=== PATIENT | male | born 1965 | race Two or more races ===

== ENCOUNTER 2022-05-22 11:34 | Inpatient (IN) | payer OTHER ==
[~2022-05-22] VITALS: Ht 177.8 cm; Wt 87.1 kg
[~2022-05-22 11:34] MED LIST: CANDESARTAN CILE8 MG PO; COZAAR50 MG PO; CRESTOR5 MG PO; FARXIGA10 MG PO; INSULIN SYRING1 EA29 SUBCUTANEO; LASIX40 MG PO; NORVASC5 MG PO; SODIUM BICARBO650 MG PO; TOPROL XL50 M1 PO
== END 2022-05-31 14:26 | disposition designated cancer center or children's hospital (05) | DRG 281 ==
LOC: ER 11:34 → MEDJ 19:45 → MEDI 19:45
PROVIDERS: ADMIT Internal Medicine; ATTEND Internal Medicine
PROC: B246ZZZ Ultrasonography of Right and Left Heart (ICD-10-PCS; principal; 2022-05-22)
PROC: BB24ZZZ Computerized Tomography (CT Scan) of Bilateral Lungs (ICD-10-PCS; 2022-05-22)
PROC: 4A12X4Z Monitoring of Cardiac Electrical Activity, External Approach (ICD-10-PCS; 2022-05-23)
DX: I21.A1 Myocardial infarction type 2 (principal); I13.0 Hypertensive heart and chronic kidney disease with heart failure and stage 1 through stage 4 chronic kidney disease, or unspecified chronic kidney disease; I50.9 Heart failure, unspecified; E11.22 Type 2 diabetes mellitus with diabetic chronic kidney disease; N18.9 Chronic kidney disease, unspecified; Z79.4 Long term (current) use of insulin; Z20.822 Contact with and (suspected) exposure to COVID-19

== ENCOUNTER 2024-06-02 05:45 | Day surgery (SDC) | payer OTHER ==
[2024-06-02] MEDS ORDERED: MIDAZOLAM HCL 2 MG/2 ML VIAL IV ONE (08:30)
[2024-06-02] MEDS ORDERED: DIPHENHYDRAMINE HCL 50 MG/ML VIAL 1ML IV ONE (08:30)
[2024-06-02] MEDS ORDERED: fentaNYL CITRATE 50 MCG/ML AMPUL IV PUSH ONE (08:30)
[2024-06-02] MEDS ORDERED: ONDANSETRON HCL 2 MG/ML VIAL IV ONE (08:30)
== END 2024-06-02 10:05 | disposition home or self-care (01) ==
LOC: AMB-ENDOS 05:45
PROVIDERS: ATTEND Colon & Rectal Surgery
DX: D12.0 Benign neoplasm of cecum (principal); D12.4 Benign neoplasm of descending colon; K63.5 Polyp of colon

== ENCOUNTER 2024-10-13 12:30 | Inpatient (IN) | payer OTHER ==
[~2024-10-13] VITALS: Ht 177.8 cm; Wt 81.6 kg
[2024-10-13] MEDS ORDERED: ADULT LOW DOSE81 M1 (14:01)
[2024-10-13] MEDS ORDERED: LIPITOR40 M1 PO (14:01)
[2024-10-13 14:08] VITALS: BP 164/72
[2024-10-18 12:55] LABS: RH NEGATIVE
[2024-10-20] MEDS ORDERED: CEFTRIAXONE SODIUM 2,000 MG VIAL ONE (06:36)
[2024-10-20] MEDS ORDERED: METRONIDAZOLE/SODIUM CHLORIDE 500 MG/100 ML PIGGYBACK IV ONE ×2 (06:36→15:30)
[2024-10-20] MEDS ORDERED: LIDOCAINE HCL 1%/EPINEPHRINE 20ML VIAL IJ ONE ×2 (07:07→15:15)
[2024-10-20] MEDS ORDERED: BUPIVACAINE HCL/MPF 0.5% 30ML VIAL ONE (07:07)
[2024-10-20 09:16] LABS: ALBUMIN 3.8 gm/dL (3.4-5.0); BILIRUBIN TOTAL 0.58 mg/dL (0.3-1.2); CALCIUM 8.5 mg/dL (8.5-10.1); GFR 8.43; GLOBULINA 4.1 G/DL (2.4-3.5); POTASSIUM 4.56 mEq/L (3.5-5.1); TOTAL PROTEIN 7.9 gm/dL (6.4-8.2)
[2024-10-20 09:24] LABS: CREATININE SERUM 6.74 mg/dL (0.70-1.30)
[2024-10-20] MEDS ORDERED: CEFTRIAXONE SODIUM 2,000 MG VIAL IV ONE (15:15)
[2024-10-20] MEDS ORDERED: BUPIVACAINE HCL 30 ML VIAL IJ ONE (15:15)
[2024-10-20] MEDS ORDERED: MORPHINE SULFATE 4 MG/ML CARTRIDGE IV PRN (16:30)
[2024-10-20] MEDS ORDERED: ONDANSETRON HCL 2 MG/ML VIAL IV PRN (16:30)
[2024-10-20] MEDS ORDERED: RINGERS SOLUTION,LACTATED 1,000 ML IV SCH (16:30)
[2024-10-20] MEDS ORDERED: DEXTROSE 50 % IN WATER 0.5 G/ML VIAL IV PRN (16:30)
[2024-10-20] MEDS ORDERED: OxyCODONE HCL 5 MG TABLET (ROXICODONE) PO PRN (16:45)
[2024-10-20] MEDS ORDERED: POLYETHYLENE GLYCOL 3350 17 GM BLIST.PACK PO SCH (17:00)
[2024-10-20] MEDS ORDERED: GABAPENTIN 300 MG CAPSULE PO SCH (17:00)
[2024-10-20] MEDS ORDERED: SIMETHICONE 125 MG CAPSULE PO SCH (17:00)
[2024-10-20] MEDS ORDERED: MORPHINE SULFATE 4 MG/ML VIAL IV ONE ×2 (17:25→17:55)
[2024-10-20 17:37] LABS: HEMATOCRIT 33.7 % (39.0-48.0); HEMOGLOBIN 11.4 g/dL (13-16.00); MEAN CELL VOLUME 94.8 fL (80.0-100.00); MEAN CORPUSCULAR HEMOGLOBIN 32.3 pg (27.00-32.0); PLATELET COUNT 164 K/uL (150-450); RED BLOOD COUNT 3.55 M/uL (4.00-6.00); RED CELL DISTRIBUTION WIDTH 14.9 % (11.5-14.5)
[2024-10-20 17:55] LABS: ALBUMIN 3.8 gm/dL (3.4-5.0); CALCIUM 8.3 mg/dL (8.5-10.1); MAGNESIUM 2.1 mg/dL (1.8-2.4); POTASSIUM 5.16 mEq/L (3.5-5.1)
[2024-10-20] MEDS ORDERED: ACETAMINOPHEN 500 MG GEL..CAP PO SCH (18:00)
[2024-10-20 18:03] LABS: GFR 7.72; PHOSPHOROUS 5.2 mg/dL (2.5-4.9)
[2024-10-20 18:25] LABS: CREATININE SERUM 7.27 mg/dL (0.70-1.30)
[2024-10-20 19:51] VITALS: BP 157/68; O2SAT 95
[2024-10-20] MEDS ORDERED: hydrALAZINE HCL 20 MG VIAL IV PRN (21:00)
[2024-10-20] MEDS ORDERED: FAMOTIDINE/PF 20 MG/2 ML VIAL IV PUSH SCH (21:00)
[2024-10-21 01:15] VITALS: BP 1501/70; O2SAT 96
[2024-10-21 06:48] LABS: HEMOGLOBIN 12.1 g/dL (13-16.00); MEAN CELL VOLUME 94.4 fL (80.0-100.00); MEAN CORPUSCULAR HEMOGLOBIN 32.7 pg (27.00-32.0); MEAN CORPUSCULAR HGB CONC 34.6 g/dl (32.0-36.0); PLATELET COUNT 157 K/uL (150-450); RED BLOOD COUNT 3.71 M/uL (4.00-6.00); RED CELL DISTRIBUTION WIDTH 14.8 % (11.5-14.5)
[2024-10-21 07:20] LABS: ALBUMIN 3.5 gm/dL (3.4-5.0); GFR 7.27; PHOSPHOROUS 5.2 mg/dL (2.5-4.9); POTASSIUM 5.9 mEq/L (3.5-5.1)
[2024-10-21 07:58] LABS: CREATININE SERUM 7.66 mg/dL (0.70-1.30)
[2024-10-21 08:00] VITALS: BP 170/78; O2SAT 98
[2024-10-21] MEDS ORDERED: METOPROLOL SUCCINATE 50 MG TAB.SR.24H PO SCH (09:00)
[2024-10-21] MEDS ORDERED: LACTOBACILLUS ACIDOPHILUS 1 CAP CAP PO SCH (09:00)
[2024-10-21] MEDS ORDERED: ATORVASTATIN CALCIUM 40 MG TABLET PO SCH (09:00)
[2024-10-21] MEDS ORDERED: AMLODIPINE BESYLATE 5 MG TABLET PO SCH (09:00)
[2024-10-21] MEDS ORDERED: MAGNESIUM CHLORIDE 70 MG TABLET.DR PO SCH (09:00)
[2024-10-21] MEDS ORDERED: LOSARTAN POTASSIUM 50 MG TABLET PO SCH (09:00)
[2024-10-21] MEDS ORDERED: ENOXAPARIN SODIUM 40 MG/0.4 ML SYRINGE SUBCUTANEO SCH (17:00)
[2024-10-21] MEDS ORDERED: HEPARIN SODIUM,PORCINE 5,000 UNITS/ML VIAL IJ ONE (18:15)
[2024-10-22 03:04] VITALS: BP 148/74; O2SAT 98
[2024-10-22] MEDS ORDERED: ENOXAPARIN SODIUM 30 MG/0.3 ML SYRINGE SUBCUTANEO SCH (09:00)
[2024-10-22 09:04] LABS: HEMOGLOBIN 11.8 g/dL (13-16.00); MEAN CELL VOLUME 96.6 fL (80.0-100.00); MEAN CORPUSCULAR HEMOGLOBIN 32.6 pg (27.00-32.0); MEAN CORPUSCULAR HGB CONC 33.8 g/dl (32.0-36.0); PLATELET COUNT 179 K/uL (150-450); RED BLOOD COUNT 3.63 M/uL (4.00-6.00); RED CELL DISTRIBUTION WIDTH 14.7 % (11.5-14.5)
[2024-10-22 09:16] VITALS: BP 131/70; O2SAT 97
[2024-10-22 10:02] LABS: ALBUMIN 3.5 gm/dL (3.4-5.0); CALCIUM 8.7 mg/dL (8.5-10.1); GFR 9.06; MAGNESIUM 2.1 mg/dL (1.8-2.4); PHOSPHOROUS 4.7 mg/dL (2.5-4.9); POTASSIUM 4.63 mEq/L (3.5-5.1)
[2024-10-22 10:17] LABS: CREATININE SERUM 6.33 mg/dL (0.70-1.30)
== END 2024-10-22 14:53 | disposition home or self-care (01) | DRG 331 ==
LOC: O/R 10-20 05:16 → SURH 10-20 07:00 → MEDJ 10-21 15:27
PROVIDERS: ADMIT Colon & Rectal Surgery; ATTEND Colon & Rectal Surgery
PROC: 0DBB4ZZ Excision of Ileum, Percutaneous Endoscopic Approach (ICD-10-PCS; 2024-10-20)
PROC: 07BB4ZZ Excision of Mesenteric Lymphatic, Percutaneous Endoscopic Approach (ICD-10-PCS; 2024-10-20)
PROC: 0DTK4ZZ Resection of Ascending Colon, Percutaneous Endoscopic Approach (ICD-10-PCS; principal; 2024-10-20 07:00)
DX: D12.2 Benign neoplasm of ascending colon (principal); K63.5 Polyp of colon; R59.0 Localized enlarged lymph nodes